=== PATIENT | female | born 1930 | race Caucasian/White ===

== ENCOUNTER 2019-03-12 03:42 | Inpatient (IN) | payer MEDICARE, MEDICAID ==
[~2019-03-12] VITALS: Ht 162.6 cm; Wt 89.9 kg
[2019-03-12] VITALS (10 sets, daily range): BP systolic 113–144; BP diastolic 37–69
[2019-03-12] MEDS ORDERED: SODIUM CHLORIDE 0.9% 1,000 ML IV ONE (03:59)
[2019-03-12 04:21] LABS: BASOPHILS % 0.9 % (0.0-2.0); EOSINOPHILS % 3.4 % (0.0-5.0); HEMATOCRIT. 34.8 % (36.0-48.0); HEMOGLOBIN. 11.2 g/dL (12.0-16.0); LYMPHOCYTES % 23.7 % (20.0-50.0); MEAN CORPUSCULAR HEMOGLOBIN 28.5 pg (28.0-32.0); MEAN CORPUSCULAR VOLUME 88.3 fL (81.0-99.0); MEAN PLATELET VOLUME 9.1 fl (7.4-10.4); PLATELET 188 x1000/uL (130-400); RED BLOOD CELL COUNT 3.94 mill/uL (4.2-5.4); RED CELL DISTRIBUTION WIDTH 15.5 % (11.6-14.6)
[2019-03-12 04:40] LABS: CHLORIDE 102 mEq/L (98-107)
[2019-03-12 04:45] LABS: ETHANOL BLOOD < 10 mg/dL
[2019-03-12 04:47] LABS: LDL CHOLESTEROL 45 mg/dL (5-100)
[2019-03-12 04:56] LABS: INR 1.1; PROTHROMBIN TIME 11.4 sec (9.6-11.0)
[2019-03-12] MEDS ORDERED: NA PHOS,M-B/NA PHOS,DI-BA ENEMA 118ML PR PRN (06:15)
[2019-03-12] MEDS ORDERED: MAGNESIUM/ALUMINUM HYDROXIDE/SIMETHICONE 30ML UDC PO PRN (06:15)
[2019-03-12] MEDS ORDERED: ONDANSETRON HCL 4MG/2ML INJ IV PRN (06:15)
[2019-03-12] MEDS ORDERED: IPRATROPIUM/ALBUTEROL 0.5-3(2.5)MG/3ML NEB HHN PRN (06:15)
[2019-03-12] MEDS ORDERED: CLONIDINE 0.1MG TABLET PO PRN (06:15)
[2019-03-12] MEDS ORDERED: DOCUSATE SODIUM 100MG CAPSULE PO PRN (06:15)
[2019-03-12] MEDS ORDERED: DIPHENHYDRAMINE 50MG/ML VIAL IV PRN (06:15)
[2019-03-12] MEDS ORDERED: LORAZEPAM 2MG/ML CPJ IV PRN (06:15)
[2019-03-12] MEDS ORDERED: HYDROMORPHONE HCL/PF 2MG/ML CPJ IV PRN (06:15)
[2019-03-12] MEDS ORDERED: GUAIFENESIN 200MG/10ML SUGAR FREE UDC PO PRN (06:15)
[2019-03-12] MEDS ORDERED: ACETAMINOPHEN 325MG TABLET PO PRN (06:15)
[2019-03-12 06:48] LABS: CLARITY URINE CLEAR (CLEAR); COLOR URINE YELLOW (YELLOW); KETONES URINE NEGATIVE (NEGATIVE); LEUKOCYTE ESTERASE URINE TRACE (NEGATIVE); NITRITE URINE NEGATIVE (NEGATIVE); OCCULT BLOOD URINE NEGATIVE (NEGATIVE); PROTEIN URINE NEGATIVE (NEGATIVE); SPECIFIC GRAVITY URINE 1.007 (1.005-1.030); UROBILINOGEN URINE 0.2 E.U./dL (0.2-1.0)
[2019-03-12 07:06] LABS: *AMPHETAMINES SCREEN URINE NEGATIVE (NEGATIVE); *BARBITURATES SCREEN URINE NEGATIVE (NEGATIVE); *BENZODIAZEPINES SCREEN URINE NEGATIVE (NEGATIVE); *COCAINE SCREEN URINE NEGATIVE (NEGATIVE)
[2019-03-12 07:08] LABS: CANNABINOID URINE SCREEN NEGATIVE (NEGATIVE); METHADONE URINE SCREEN NEGATIVE (NEGATIVE); OPIATES URINE SCREEN NEGATIVE (NEGATIVE); PHENCYCLIDINE URINE SCREEN NEGATIVE (NEGATIVE)
[2019-03-12] MEDS ORDERED: DEXTROSE 50% WATER 50ML SYRINGE IV PRN (10:00)
[2019-03-12] MEDS: ASPIRIN 81MG EC TABLET PO SCH (10:23)
[2019-03-12] MEDS: ENOXAPARIN 40MG/0.4ML SYR SUBCUT SCH (10:23)
[2019-03-12] MEDS: INSULIN LISPRO 100 UNITS/ML SUBCUT SCH ×3 (12:29→20:57)
[2019-03-12] MEDS: BLOOD SUGAR DIAGNOSTIC STRIP TEST SCH ×3 (12:39→20:57)
[2019-03-12] MEDS: SODIUM CHLORIDE 0.45% 1,000 ML IV SCH (13:12)
[2019-03-12] MEDS ORDERED: xarelto PO (13:49)
[2019-03-12] MEDS ORDERED: FURO40TA5 PO (14:59)
[2019-03-12] MEDS ORDERED: ATOR10TA69 PO (15:01)
[2019-03-12] MEDS ORDERED: QUET50TA21 PO (15:02)
[2019-03-12] MEDS ORDERED: LEVO50TA8 MT (15:15)
[2019-03-12] MEDS ORDERED: AMLO-504 MT (15:19)
[2019-03-12] MEDS ORDERED: DOCU-272 PO (15:20)
[2019-03-12] MEDS ORDERED: OLOP2.5D6 OP (15:22)
[2019-03-12] MEDS ORDERED: BRIN8DRO EACHEYE (15:23)
[2019-03-12] MEDS ORDERED: UMEC1DIS INH (15:27)
[2019-03-12] MEDS ORDERED: RIVA1PAT3 TD (15:31)
[2019-03-12] MEDS ORDERED: DICL100G16 TP (15:34)
[2019-03-12] MEDS ORDERED: LIRA0.6P2 SQ (15:35)
[2019-03-12] MEDS ORDERED: LEVVL SQ (15:37)
[2019-03-12] MEDS ORDERED: MULT-1203 PO (15:38)
[2019-03-12] MEDS ORDERED: FISH PO (16:05)
[2019-03-13] VITALS (12 sets, daily range): BP systolic 47–147; BP diastolic 20–80
[2019-03-13 06:45] LABS: BASOPHILS % 0.3 % (0.0-2.0); EOSINOPHILS % 3.3 % (0.0-5.0); HEMATOCRIT. 34.5 % (36.0-48.0); LYMPHOCYTES % 21.1 % (20.0-50.0); MEAN CORPUSCULAR HEMOGLOBIN 28.1 pg (28.0-32.0); MEAN CORPUSCULAR VOLUME 88.3 fL (81.0-99.0); MEAN PLATELET VOLUME 9.3 fl (7.4-10.4); MONOCYTES % 5.4 % (2.0-8.0); NEUTROPHILS % 69.9 % (40.0-76.0); PLATELET 168 x1000/uL (130-400); RED BLOOD CELL COUNT 3.91 mill/uL (4.2-5.4); RED CELL DISTRIBUTION WIDTH 15.6 % (11.6-14.6)
[2019-03-13 06:53] LABS: CHLORIDE 106 mEq/L (98-107)
[2019-03-13 07:06] LABS: LDL CHOLESTEROL 50 mg/dL (5-100)
[2019-03-13 07:08] LABS: HDL CHOLESTEROL 40 mg/dL (40-59); T4 FREE 0.97 ng/dL (0.76-1.46)
[2019-03-13] MEDS: BLOOD SUGAR DIAGNOSTIC STRIP TEST SCH ×4 (07:30→21:31)
[2019-03-13] MEDS: ASPIRIN 81MG EC TABLET PO SCH (09:26)
[2019-03-13] MEDS: MEMANTINE HCL 5MG TABLET PO SCH ×2 (09:27→21:31)
[2019-03-13] MEDS: ENOXAPARIN 40MG/0.4ML SYR SUBCUT SCH (09:27)
[2019-03-13] MEDS: INSULIN LISPRO 100 UNITS/ML SUBCUT SCH ×4 (09:28→21:31)
[2019-03-13 09:41] LABS: VITAMIN B12 SERUM 1018 pg/mL (211-911)
[2019-03-13] MEDS: SODIUM CHLORIDE 0.45% 1,000 ML IV SCH (13:22)
[2019-03-13 17:07] LABS: CREATINE KINASE 84 IU/L (26-192)
[2019-03-13 17:09] LABS: CREATINE KINASE MB FRACTION 1.1 ng/mL (0.5-3.6)
[2019-03-13 23:49] LABS: CREATINE KINASE 75 IU/L (26-192)
[2019-03-13 23:50] LABS: CREATINE KINASE MB FRACTION < 1.0 ng/mL (0.5-3.6)
[2019-03-14] VITALS (12 sets, daily range): BP systolic 121–159; BP diastolic 54–76
[2019-03-14] MEDS: BLOOD SUGAR DIAGNOSTIC STRIP TEST SCH ×4 (07:30→20:53)
[2019-03-14] MEDS: SODIUM CHLORIDE 0.45% 1,000 ML IV SCH (08:42)
[2019-03-14] MEDS: ASPIRIN 81MG EC TABLET PO SCH (08:42)
[2019-03-14] MEDS: MEMANTINE HCL 5MG TABLET PO SCH ×2 (08:42→20:54)
[2019-03-14] MEDS: INSULIN LISPRO 100 UNITS/ML SUBCUT SCH ×4 (08:42→21:03)
[2019-03-14] MEDS: RIVAROXABAN 15 MG TABLET PO SCH (18:51)
[2019-03-15] VITALS (15 sets, daily range): BP systolic 103–149; BP diastolic 33–87
[2019-03-15 06:11] LABS: BASOPHILS % 0.5 % (0.0-2.0); EOSINOPHILS % 3.1 % (0.0-5.0); HEMATOCRIT. 34.1 % (36.0-48.0); LYMPHOCYTES % 23.5 % (20.0-50.0); MEAN CORPUSCULAR HEMOGLOBIN 28.7 pg (28.0-32.0); MEAN CORPUSCULAR VOLUME 88.8 fL (81.0-99.0); MEAN PLATELET VOLUME 9.2 fl (7.4-10.4); MONOCYTES % 5.8 % (2.0-8.0); NEUTROPHILS % 67.1 % (40.0-76.0); PLATELET 174 x1000/uL (130-400); RED BLOOD CELL COUNT 3.84 mill/uL (4.2-5.4); RED CELL DISTRIBUTION WIDTH 15.8 % (11.6-14.6)
[2019-03-15] MEDS: SODIUM CHLORIDE 0.45% 1,000 ML IV SCH ×2 (06:11→06:12)
[2019-03-15] MEDS: INSULIN LISPRO 100 UNITS/ML SUBCUT SCH ×4 (08:14→20:35)
[2019-03-15] MEDS: HYDROCODONE/ACETAMINOPHEN 5/325MG TABLET PO PRN (08:14)
[2019-03-15] MEDS: BLOOD SUGAR DIAGNOSTIC STRIP TEST SCH ×4 (08:15→20:31)
[2019-03-15] MEDS: ASPIRIN 81MG EC TABLET PO SCH (08:15)
[2019-03-15] MEDS: MEMANTINE HCL 5MG TABLET PO SCH ×2 (08:15→20:28)
[2019-03-15] MEDS: RIVAROXABAN 15 MG TABLET PO SCH (17:00)
[2019-03-16] VITALS (13 sets, daily range): BP systolic 109–161; BP diastolic 22–75
[2019-03-16] MEDS: HYDROCODONE/ACETAMINOPHEN 5/325MG TABLET PO PRN (01:23)
[2019-03-16] MEDS: SODIUM CHLORIDE 0.45% 1,000 ML IV SCH (07:15)
[2019-03-16] MEDS: BLOOD SUGAR DIAGNOSTIC STRIP TEST SCH ×4 (07:30→21:00)
[2019-03-16] MEDS: ASPIRIN 81MG EC TABLET PO SCH (09:07)
[2019-03-16] MEDS: MEMANTINE HCL 5MG TABLET PO SCH ×2 (09:07→22:28)
[2019-03-16] MEDS: INSULIN LISPRO 100 UNITS/ML SUBCUT SCH ×4 (09:07→22:37)
[2019-03-16] MEDS: RIVAROXABAN 15 MG TABLET PO SCH (17:58)
[2019-03-17] VITALS (9 sets, daily range): BP systolic 108–163; BP diastolic 60–91
[2019-03-17] MEDS: BLOOD SUGAR DIAGNOSTIC STRIP TEST SCH ×4 (07:30→21:43)
[2019-03-17] MEDS: INSULIN LISPRO 100 UNITS/ML SUBCUT SCH ×4 (08:00→21:43)
[2019-03-17] MEDS: ASPIRIN 81MG EC TABLET PO SCH (11:13)
[2019-03-17] MEDS: MEMANTINE HCL 5MG TABLET PO SCH ×2 (11:13→20:51)
[2019-03-17] MEDS: SODIUM CHLORIDE 0.45% 1,000 ML IV SCH (11:15)
[2019-03-17] MEDS: RIVAROXABAN 15 MG TABLET PO SCH (17:59)
[2019-03-18] VITALS: BP 148/73
[2019-03-18 04:00] VITALS: BP 148/70
[2019-03-18] MEDS: BLOOD SUGAR DIAGNOSTIC STRIP TEST SCH ×3 (07:30→17:33)
[2019-03-18 08:00] VITALS: BP 135/70
[2019-03-18] MEDS: ASPIRIN 81MG EC TABLET PO SCH (09:16)
[2019-03-18] MEDS: MEMANTINE HCL 5MG TABLET PO SCH (09:16)
[2019-03-18] MEDS: INSULIN LISPRO 100 UNITS/ML SUBCUT SCH ×3 (09:17→18:00)
[2019-03-18] MEDS: SODIUM CHLORIDE 0.45% 1,000 ML IV SCH (09:18)
[2019-03-18 12:00] VITALS: BP 137/50
[2019-03-18 16:00] VITALS: BP 121/69
[2019-03-18] MEDS: RIVAROXABAN 15 MG TABLET PO SCH (17:33)
[2019-03-18 18:06] VITALS: BP_DIAS 107
== END 2019-03-18 18:45 | disposition home or self-care (01) | DRG 45 ==
LOC: ER 03:42 → 5EST 05:35 → EDBEDREQ 05:38 → EDBEDREQTM 05:38 → ENRESERV 07:20
PROVIDERS: ADMIT Internal Medicine; ATTEND Internal Medicine
DX: I63.9 Cerebral infarction, unspecified (principal); J96.20 Acute and chronic respiratory failure, unspecified whether with hypoxia or hypercapnia; G93.41 Metabolic encephalopathy; J90 Pleural effusion, not elsewhere classified; E46 Unspecified protein-calorie malnutrition; I11.0 Hypertensive heart disease with heart failure; I27.20 Pulmonary hypertension, unspecified; I48.91 Unspecified atrial fibrillation; I50.32 Chronic diastolic (congestive) heart failure; Z99.81 Dependence on supplemental oxygen; E05.90 Thyrotoxicosis, unspecified without thyrotoxic crisis or storm; E11.9 Type 2 diabetes mellitus without complications; E86.0 Dehydration; I25.10 Atherosclerotic heart disease of native coronary artery without angina pectoris; E78.00 Pure hypercholesterolemia, unspecified; E78.5 Hyperlipidemia, unspecified; F02.80 Dementia in other diseases classified elsewhere, unspecified severity, without behavioral disturbance, psychotic disturbance, mood disturbance, and anxiety; G30.9 Alzheimer's disease, unspecified; G89.29 Other chronic pain; Z79.01 Long term (current) use of anticoagulants; J44.9 Chronic obstructive pulmonary disease, unspecified; Z79.4 Long term (current) use of insulin; Z79.899 Other long term (current) drug therapy; Z86.73 Personal history of transient ischemic attack (TIA), and cerebral infarction without residual deficits; Z68.34 Body mass index [BMI] 34.0-34.9, adult
CPT/HCPCS: 36415; 71045; 76604; 80048; 80053; 80061; 80305; 80320; 81003; 82550; 82553; 82607; 82962; 83036; 83721; 84439; 84443; 84484; 85025; 93005; 93306; 96360; 96372; 97162; 97530; 99291; A6261; C1893; J1650; J1815; J2060; J7030; G0480

== ENCOUNTER 2019-05-22 04:33 | Inpatient (IN) | payer MEDICARE, MEDICAID ==
[~2019-05-22] VITALS: Ht 162.6 cm; Wt 87.5 kg
[~2019-05-22 04:33] MED LIST: AMLO-504 MT; ATOR10TA69 PO; BRIN8DRO EACHEYE; DICL100G16 TP; DOCU-272 PO; FISH PO; FURO40TA5 PO; LEVO50TA8 MT; LEVVL SQ; LIRA0.6P2 SQ; MULT-1203 PO; OLOP2.5D6 OP; QUET50TA21 PO; RIVA1PAT3 TD; UMEC1DIS INH; xarelto PO
[2019-05-22] MEDS ORDERED: ONDANSETRON 4MG ODT PO STA (04:40)
[2019-05-22] MEDS ORDERED: SODIUM CHLORIDE 0.9% 1000ML BAG (SEPSIS BOLUS) IV ONE (04:45)
[2019-05-22] MEDS ORDERED: CEFTRIAXONE 1 G PREMIX 50 ML IV ONE (04:45)
[2019-05-22 05:10] LABS: CHLORIDE 103 mEq/L (98-107); INR 1.1; PROTHROMBIN TIME 12.3 sec (9.6-11.0)
[2019-05-22 05:12] LABS: BASOPHILS % 0.2 % (0.0-2.0); EOSINOPHILS % 0.4 % (0.0-5.0); HEMATOCRIT. 33.4 % (36.0-48.0); HEMOGLOBIN. 10.9 g/dL (12.0-16.0); LYMPHOCYTES % 13.1 % (20.0-50.0); MEAN CORPUSCULAR HEMOGLOBIN 28.6 pg (28.0-32.0); MEAN CORPUSCULAR VOLUME 87.6 fL (81.0-99.0); MEAN PLATELET VOLUME 8.5 fl (7.4-10.4); MONOCYTES % 6.4 % (2.0-8.0); NEUTROPHILS % 79.9 % (40.0-76.0); PLATELET 212 x1000/uL (130-400); RED BLOOD CELL COUNT 3.82 mill/uL (4.2-5.4); RED CELL DISTRIBUTION WIDTH 16.7 % (11.6-14.6)
[2019-05-22 05:52] LABS: CLARITY URINE CLEAR (CLEAR); COLOR URINE YELLOW (YELLOW); KETONES URINE NEGATIVE (NEGATIVE); LEUKOCYTE ESTERASE URINE NEGATIVE (NEGATIVE); NITRITE URINE NEGATIVE (NEGATIVE); OCCULT BLOOD URINE NEGATIVE (NEGATIVE); PROTEIN URINE NEGATIVE (NEGATIVE); SPECIFIC GRAVITY URINE 1.014 (1.005-1.030); UROBILINOGEN URINE 0.2 E.U./dL (0.2-1.0)
[2019-05-22 10:55] VITALS: BP 92/40
[2019-05-22] MEDS ORDERED: DEXTROSE 50% WATER 50ML SYRINGE IV PRN (11:15)
[2019-05-22 12:00] VITALS: BP 92/40
[2019-05-22] MEDS: BLOOD SUGAR DIAGNOSTIC STRIP TEST SCH ×3 (12:00→21:06)
[2019-05-22] MEDS: INSULIN LISPRO 100 UNITS/ML SUBCUT SCH ×3 (12:46→21:06)
[2019-05-22 16:00] VITALS: BP 98/42
[2019-05-22] MEDS: AZITHROMYCIN 500 MG in DEXT 5% WATER 250 ML IV SCH (17:26)
[2019-05-22] MEDS ORDERED: CYCL30DR OP (19:18)
[2019-05-22] MEDS ORDERED: BUDE6.9H INH (19:18)
[2019-05-22] MEDS ORDERED: ALBU18HF2 IH (19:18)
[2019-05-22] MEDS ORDERED: UMEC1DIS IH (19:19)
[2019-05-22] MEDS ORDERED: GABA-529 PO (19:19)
[2019-05-22] MEDS ORDERED: MEMA10TA55 PO (19:19)
[2019-05-22 20:00] VITALS: BP 97/41
[2019-05-22] MEDS: QUETIAPINE FUMARATE 50MG TABLET PO SCH (21:02)
[2019-05-22] MEDS: ATORVASTATIN CALCIUM 10MG TABLET PO SCH (21:02)
[2019-05-22] MEDS: RIVAROXABAN 15 MG TABLET PO SCH (21:06)
[2019-05-23] VITALS (8 sets, daily range): BP systolic 99–121; BP diastolic 34–50
[2019-05-23] MEDS: CEFTRIAXONE 1 G PREMIX 50 ML IV SCH (04:00)
[2019-05-23] MEDS: BLOOD SUGAR DIAGNOSTIC STRIP TEST SCH ×4 (05:44→21:09)
[2019-05-23] MEDS: LEVOTHYROXINE SODIUM 50MCG TABLET PO SCH (05:44)
[2019-05-23] MEDS: INSULIN LISPRO 100 UNITS/ML SUBCUT SCH ×4 (06:34→21:10)
[2019-05-23] MEDS: FISH OIL/OMEGA-3 FATTY ACIDS 1000MG CAPSULE PO SCH (08:50)
[2019-05-23] MEDS: QUETIAPINE FUMARATE 50MG TABLET PO SCH (08:50)
[2019-05-23] MEDS: RIVASTIGMINE 9.5MG/24HR PATCH TD SCH (08:50)
[2019-05-23] MEDS: LORAZEPAM 2MG/ML CPJ IV PRN (10:16)
[2019-05-23] MEDS: INSULIN GLARGINE UD 100 UNITS/ML SYR SUBCUT SCH (11:40)
[2019-05-23] MEDS: AZITHROMYCIN 500 MG in DEXT 5% WATER 250 ML IV SCH (15:13)
[2019-05-23] MEDS: RIVAROXABAN 15 MG TABLET PO SCH (17:11)
[2019-05-23] MEDS: ATORVASTATIN CALCIUM 10MG TABLET PO SCH ×2 (21:00→21:10)
[2019-05-23 23:11] LABS: BASOPHILS % 0.6 % (0.0-2.0); EOSINOPHILS % 2.4 % (0.0-5.0); HEMATOCRIT. 30.9 % (36.0-48.0); HEMOGLOBIN. 10.1 g/dL (12.0-16.0); LYMPHOCYTES % 20.9 % (20.0-50.0); MEAN CORPUSCULAR VOLUME 88.4 fL (81.0-99.0); MONOCYTES % 8.2 % (2.0-8.0); NEUTROPHILS % 67.9 % (40.0-76.0); PLATELET 215 x1000/uL (130-400)
[2019-05-23 23:15] LABS: CHLORIDE 107 mEq/L (98-107)
[2019-05-24] VITALS (7 sets, daily range): BP systolic 107–139; BP diastolic 39–57
[2019-05-24] MEDS: CEFTRIAXONE 1 G PREMIX 50 ML IV SCH (06:03)
[2019-05-24] MEDS: BLOOD SUGAR DIAGNOSTIC STRIP TEST SCH ×4 (06:18→20:31)
[2019-05-24] MEDS: INSULIN LISPRO 100 UNITS/ML SUBCUT SCH ×4 (06:41→20:39)
[2019-05-24] MEDS: LEVOTHYROXINE SODIUM 50MCG TABLET PO SCH (06:52)
[2019-05-24] MEDS: QUETIAPINE FUMARATE 50MG TABLET PO SCH (09:49)
[2019-05-24] MEDS: FISH OIL/OMEGA-3 FATTY ACIDS 1000MG CAPSULE PO SCH (09:49)
[2019-05-24] MEDS: RIVASTIGMINE 9.5MG/24HR PATCH TD SCH (09:49)
[2019-05-24] MEDS: INSULIN GLARGINE UD 100 UNITS/ML SYR SUBCUT SCH (09:50)
[2019-05-24] MEDS: LORAZEPAM 2MG/ML CPJ IV PRN (13:38)
[2019-05-24] MEDS: AZITHROMYCIN 500 MG in DEXT 5% WATER 250 ML IV SCH (15:17)
[2019-05-24] MEDS ORDERED: METHYLPREDNISOLONE SOD SUCC 40 MG/ML VIAL IV SCH (17:00)
[2019-05-24] MEDS ORDERED: IPRATROPIUM/ALBUTEROL 0.5-3(2.5)MG/3ML NEB HHN SCH (18:00)
[2019-05-24] MEDS: RIVAROXABAN 15 MG TABLET PO SCH (18:26)
[2019-05-24] MEDS: ATORVASTATIN CALCIUM 10MG TABLET PO SCH (20:31)
[2019-05-24] MEDS ORDERED: GUAIFENESIN 600MG ER TABLET PO SCH (21:00)
[2019-05-25] MEDS ORDERED: AZITHROMYCIN 500 MG TABLET PO SCH (09:00)
== END 2019-05-24 22:00 | disposition home or self-care (01) | DRG 720 ==
LOC: ER 04:33 → 7EST 05:45 → EDBEDREQTM 05:47 → EDBEDREQSVC 05:47 → EDBEDREQ 05:47 → ENRESERV 07:40 → EDBEDREQ 10:05 → 5WST 05-23 23:14
PROVIDERS: ADMIT Internal Medicine; ATTEND Internal Medicine
DX: A41.9 Sepsis, unspecified organism (principal); J96.21 Acute and chronic respiratory failure with hypoxia; I11.0 Hypertensive heart disease with heart failure; J18.9 Pneumonia, unspecified organism; E11.65 Type 2 diabetes mellitus with hyperglycemia; I27.20 Pulmonary hypertension, unspecified; I50.9 Heart failure, unspecified; I42.9 Cardiomyopathy, unspecified; J44.0 Chronic obstructive pulmonary disease with (acute) lower respiratory infection; J44.1 Chronic obstructive pulmonary disease with (acute) exacerbation; G30.9 Alzheimer's disease, unspecified; Z86.73 Personal history of transient ischemic attack (TIA), and cerebral infarction without residual deficits; F02.80 Dementia in other diseases classified elsewhere, unspecified severity, without behavioral disturbance, psychotic disturbance, mood disturbance, and anxiety; I48.91 Unspecified atrial fibrillation; E05.90 Thyrotoxicosis, unspecified without thyrotoxic crisis or storm; Z99.81 Dependence on supplemental oxygen; Z79.4 Long term (current) use of insulin; Z79.1 Long term (current) use of non-steroidal anti-inflammatories (NSAID); Z79.899 Other long term (current) drug therapy; Z79.890 Hormone replacement therapy; Z79.84 Long term (current) use of oral hypoglycemic drugs; Z79.01 Long term (current) use of anticoagulants
CPT/HCPCS: 36415; 71045; 80053; 81003; 82728; 82962; 83036; 83605; 83615; 83880; 84145; 84484; 85025; 87635; 87804; 93005; 94640; 99291; J0456; J0696; J1815; J2060; J2920; J7030; J7060; Q0162